=== PATIENT | male | born 1990 | race American Indian/Alaskan Native ===

== ENCOUNTER 2019-06-10 17:50 | Emergency (ER) | payer MEDICARE ==
[2019-06-10 21:24] VITALS: BP 159/103
--- NOTE | 2019-06-10 21:26 | Emergency Department Report ---
Chief Complaint: Burn/Smoke Inhalation Stated Complaint: EXPOSED TO HAZARDOUS GAS - HPI History of Present Illness: 29 y/o M p/w a cc of FINNEGAN, dizziness and fatigue x 2-3 months. [employer] informed pt they detected high levels of carbon monoxide in the home. - Exam Vital Signs: Vital Signs 06/10/19 21:21 Temperature 97.4 F L Pulse Rate 98 H Respiratory 18 Rate Blood Pressure 159/103 O2 Sat by Pulse 100 Oximetry MSE screening note: Focused history and physical exam performed. Due to findings the following was ordered: cbc, bmp carboxyhem ED Disposition for MSE Condition: Stable
[2019-06-10 21:38] LABS: Basophils # (Auto) 0.1 K/mm3 (0.0-0.1); Basophils % (Auto) 1.1 % (0.0-1.8); Eosinophils # (Auto) 0.1 K/mm3 (0.0-0.4); Eosinophils % (Auto) 1.7 % (0.0-4.3); Hematocrit 46.6 % (35.5-45.6); Hemoglobin 15.7 gm/dl (11.8-15.2); Lymphocytes % (Auto) 34.8 % (13.4-35.0); Mean Corpuscular HGB Conc 34 % (32-34); Mean Corpuscular Volume 85 fl (84-94); Monocytes # (Auto) 0.6 K/mm3 (0.0-0.8); Monocytes % (Auto) 6.7 % (0.0-7.3); Platelet Count 292 K/mm3 (140-440); Red Blood Count 5.49 M/mm3 (3.65-5.03)
[2019-06-10 21:57] LABS: BUN/Creatinine Ratio 11; Blood Urea Nitrogen 10 mg/dL (9-20); Calcium 9.5 mg/dL (8.4-10.2); Hemolysis Index 21
--- NOTE | 2019-06-11 00:35 | Emergency Department Report ---
- General Chief Complaint: Burn/Smoke Inhalation Stated Complaint: EXPOSED TO HAZARDOUS GAS Source: patient Mode of arrival: Ambulatory Limitations: No Limitations - History of Present Illness Initial Comments: Patient is a 29-year-old -[place] male with a history of depression who presents to the ED with complaint of acute onset persistent nasal and sinus congestion, persistent dry cough for the last 1 month. Patient states that carbon monoxide gas was detected in their house recently and he would like to be checked for any potential exposure to the gas. Patient denies fever, chills, nausea, vomiting, syncope, chest pain, shortness of breath, dizziness, palpitations or headache MD Complaint: cough, rhinorrhea, nasal congestion, sinus pain -: Gradual, month(s) (1) Severity: moderate Severity scale (0 -10): 3 Quality: dull, aching Consistency: intermittent Improves With: nothing Worsens With: nothing Associated Symptoms: denies other symptoms, rhinorrhea, nasal congestion. denies: fever, chills, myalgias, diaphoresis, headache, sore throat, chest pain, shortness of breath, abdominal pain, vomiting, dysuria, rash, right sweats, weight loss, epistaxis, hoarseness, ear pain, other Treatments Prior to Arrival: none - Related Data Home Medications Medication Instructions Recorded Confirmed Last Taken Sertraline [Zoloft] 50 mg PO QDAY 03/28/15 04/17/15 04/16/15 Previous Rx's Medication Instructions Recorded Last Taken Type Amoxicillin/K Clav Tab [Augmentin 1 tab PO Q12HR 30 Days tab 04/15/15 04/16/15 Rx 875 mg] Azithromycin [Zithromax TAB] 250 mg PO QDAY #6 tablet 06/11/19 Unknown Rx Benzonatate [Tessalon Perles] 100 mg PO Q8HR #30 capsule 06/11/19 Unknown Rx Cetirizine HCl [Zyrtec 10mg tab] 10 mg PO DAILY #30 tablet 06/11/19 Unknown Rx Allergies Allergy/AdvReac Type Severity Reaction Status Date / Time No Known Allergies Allergy Verified 04/17/15 09:58 ED Review of Systems ROS: Stated complaint: EXPOSED TO HAZARDOUS GAS Other details as noted in HPI Constitutional: denies: chills, fever Eyes: denies: eye pain, eye discharge, vision change ENT: congestion. denies: ear pain, throat pain Respiratory: cough. denies: shortness of breath, wheezing Cardiovascular: denies: chest pain, palpitations Endocrine: no symptoms reported Gastrointestinal: denies: abdominal pain, nausea, diarrhea Genitourinary: denies: urgency, dysuria Musculoskeletal: denies: back pain, joint swelling, arthralgia Skin: denies: rash, lesions Neurological: denies: headache, weakness, paresthesias Psychiatric: denies: anxiety, depression Hematological/Lymphatic: denies: easy bleeding, easy bruising ED Past Medical Hx - Past Medical History Previous Medical History?: Yes Hx Hypertension: No Hx Congestive Heart Failure: No Hx Diabetes: No Hx Renal Disease: No Hx Seizures: No Hx Psychiatric Treatment: Yes (anxiety/depression) Hx Asthma: No Hx COPD: No - Surgical History Past Surgical History?: Yes Hx Appendectomy: Yes - Social History Smoking Status: Never Smoker Substance Use Type: None - Medications Home Medications: Home Medications Medication Instructions Recorded Confirmed Last Taken Type Sertraline [Zoloft] 50 mg PO QDAY 03/28/15 04/17/15 04/16/15 History Amoxicillin/K Clav Tab [Augmentin 1 tab PO Q12HR 30 Days tab 04/15/15 04/17/15 04/16/15 Rx 875 mg] Azithromycin [Zithromax TAB] 250 mg PO QDAY #6 tablet 06/11/19 Unknown Rx Benzonatate [Tessalon Perles] 100 mg PO Q8HR #30 capsule 06/11/19 Unknown Rx Cetirizine HCl [Zyrtec 10mg tab] 10 mg PO DAILY #30 tablet 06/11/19 Unknown Rx ED Physical Exam - General Limitations: No Limitations General appearance: alert, in no apparent distress - Head Head exam: Present: atraumatic, normocephalic, normal inspection - Eye Eye exam: Present: normal appearance, PERRL, EOMI Pupils: Present: normal accommodation - ENT ENT exam: Present: normal exam, normal orophraynx, mucous membranes moist, TM's normal bilaterally, normal external ear exam, other (grossly congested nasal passages) - Neck Neck exam: Present: normal inspection, full ROM - Respiratory Respiratory exam: Present: normal lung sounds bilaterally. Absent: respiratory distress, wheezes, rales, stridor, chest wall tenderness, accessory muscle use, decreased breath sounds - Cardiovascular Cardiovascular Exam: Present: regular rate, normal rhythm, normal heart sounds. Absent: systolic murmur, diastolic murmur, rubs, gallop - GI/Abdominal GI/Abdominal exam: Present: soft, normal bowel sounds. Absent: tenderness, guarding, hyperactive bowel sounds, hypoactive bowel sounds, organomegaly - Extremities Exam Extremities exam: Present: normal inspection, full ROM, normal capillary refill - Back Exam Back exam: Present: normal inspection, full ROM. Absent: tenderness, CVA tenderness (R), muscle spasm, paraspinal tenderness, vertebral tenderness - Neurological Exam Neurological exam: Present: alert, oriented X3, CN II-XII intact, normal gait, reflexes normal - Psychiatric Psychiatric exam: Present: normal affect, normal mood - Skin Skin exam: Present: warm, dry, intact, normal color. Absent: rash ED Course Vital Signs 06/10/19 21:21 Temperature 97.4 F L Pulse Rate 98 H Respiratory 18 Rate Blood Pressure 159/103 O2 Sat by Pulse 100 Oximetry ED Medical Decision Making - Lab Data Result diagrams: 06/10/19 21:27 06/10/19 21:27 - Medical Decision Making This is a 29-year-old male who presented to the ED with complaint of acute onset persistent nasal and sinus congestion, dry cough, frontal sinus pressure for the last 1 month. In the ED, patient is alert and oriented 3 and is not in distress. Lab test results were reviewed including carboxyhemoglobin level, and all nonactionable. Patient was discharged home on medications for acute upper respiratory infection and bronchitis, and was advised to follow-up with his primary care physician in 5-7 days for reevaluation or return to the ED immediately if symptoms get worse. - Differential Diagnosis URI; bronchitis; Flu; Pneumonia Critical care attestation.: If time is entered above; I have spent that time in minutes in the direct care of this critically ill patient, excluding procedure time. ED Disposition Clinical Impression: Acute upper respiratory infection Acute bronchitis Qualifiers: Bronchitis organism: other organism Qualified Code(s): J20.8 - Acute bronchitis due to other specified organisms Disposition: - TO HOME OR SELFCARE Is pt being admited?: No Does the pt Need Aspirin: No Condition: Stable Instructions: Acute Bronchitis (ED), Upper Respiratory Infection (ED) Additional Instructions: Take medications with food, drink plenty of fluids and follow up with primary care physician in 5-7 days for reevaluation. Return to the ED immediately if symptoms get worse. Prescriptions: Benzonatate [Tessalon Perles] 100 mg PO Q8HR #30 capsule Azithromycin [Zithromax TAB] 250 mg PO QDAY #6 tablet Cetirizine HCl [Zyrtec 10mg tab] 10 mg PO DAILY #30 tablet Referrals: [facility] [Outside] - 3-5 Days Time of Disposition: 00:31 Print Language: LATVIAN
== END 2019-06-11 01:12 | disposition home or self-care (01) ==
LOC: ED 17:50
DX: J20.8 Acute bronchitis due to other specified organisms (principal); J06.9 Acute upper respiratory infection, unspecified; F31.89 Other bipolar disorder; Z90.89 Acquired absence of other organs; Z79.899 Other long term (current) drug therapy
CPT/HCPCS: 36415; 80048; 82375; 85025; 99283